=== PATIENT | female | born 1955 | race Caucasian/White ===

== ENCOUNTER 2019-11-23 06:45 | Inpatient (IN) | payer MEDICARE, MEDICAID ==
[~2019-11-23] VITALS: Ht 162.6 cm; Wt 103.0 kg
[~2019-11-23 06:45] MED LIST: METO25TA35 PO; MULT-717 PO; TRIA1TAB3 PO
[2019-11-23 07:20] VITALS: BP 138/82
[2019-11-23] MEDS ORDERED: CHLORHEXIDINE 15 ML UDC MM STA (07:27)
[2019-11-23] MEDS ORDERED: LACTATED RINGERS 1,000 ML IV SCH ×2 (07:29→12:30)
[2019-11-23] MEDS ORDERED: GABAPENTIN 300 MG CAPSULE ONE (08:13)
[2019-11-23] MEDS ORDERED: ACETAMINOPHEN 500 MG TABLET ONE (08:13)
[2019-11-23] MEDS ORDERED: GABAPENTIN 300 MG CAPSULE PO STA (08:16)
[2019-11-23] MEDS ORDERED: FENTANYL PF 250 MCG/5ML ONE (08:24)
[2019-11-23 08:25] LABS: ALANINE AMINOTRANSFERASE 33 U/L (12-78); ALBUMIN 3.6 g/dL (3.4-5.0); ANION GAP 5 mmol/L (5-15); CALCIUM 9.2 mg/dL (8.5-10.1); CHLORIDE 110 mmol/L (98-107); CREATININE 1.22 mg/dL (0.55-1.02)
[2019-11-23 08:27] LABS: ALKALINE PHOSPHATASE 81 U/L (45-117); BILIRUBIN,TOTAL 0.5 mg/dL (0.2-1.0)
[2019-11-23] MEDS ORDERED: LABETALOL 5MG/ML, 20ML IV PRN (08:30)
[2019-11-23] MEDS ORDERED: OXYcodone 5 MG/5 ML ORAL.SOL UDC PO PRN (08:30)
[2019-11-23] MEDS ORDERED: hydrALAzine 20 MG/ML, 1ML IV PRN (08:30)
[2019-11-23] MEDS ORDERED: PROMETHAZINE 25 MG/ML, 1ML IV PRN (08:30)
[2019-11-23] MEDS ORDERED: HALOPERIDOL 5 MG/ML IV PRN (08:30)
[2019-11-23] MEDS ORDERED: HYDROmorphone 2 MG/ML, 1ML IVPush PRN (08:30)
[2019-11-23] MEDS ORDERED: MEPERIDINE/PF 25MG/ML,1ML IVPush PRN (08:30)
[2019-11-23] MEDS ORDERED: ALBUTEROL SULFATE 2.5 MG/3 ML NPPB PRN (08:30)
[2019-11-23] MEDS ORDERED: ACETAMINOPHEN 500 MG TABLET PO ONE (08:30)
[2019-11-23] MEDS ORDERED: GABAPENTIN 300 MG CAPSULE PO ONE (08:30)
[2019-11-23] MEDS ORDERED: GLYCOPYRROLATE 0.2MG/1ML, 5ML ONE (09:27)
[2019-11-23] MEDS ORDERED: NEOSTIGMINE 1 MG/ML, 10ML ONE (09:27)
[2019-11-23] MEDS ORDERED: ROCURONIUM 10MG/ML,5ML ONE (09:27)
[2019-11-23] MEDS ORDERED: PROPOFOL 10 MG/ML, 20ML ONE (09:27)
[2019-11-23] MEDS ORDERED: ONDANSETRON 2MG/ML, 2ML ONE (09:27)
[2019-11-23] MEDS ORDERED: DEXAMETHASONE 4 MG/ML, 1ML ONE (09:27)
[2019-11-23] MEDS ORDERED: SUCCINYLCHOLINE 20 MG/ML, 10ML ONE (09:27)
[2019-11-23] MEDS ORDERED: CEFAZOLIN 1,000 MG ONE (09:27)
[2019-11-23] MEDS ORDERED: FENTANYL PF 100 MCG/2ML ONE ×3 (09:50→10:41)
[2019-11-23] MEDS: FENTANYL PF 100 MCG/2ML IV PRN ×6 (09:52→10:45)
[2019-11-23] MEDS ORDERED: OXYcodone 5 MG/5 ML ORAL.SOL UDC ONE (09:56)
[2019-11-23] MEDS ORDERED: hydrALAzine 20 MG/ML, 1ML ONE (10:00)
[2019-11-23] MEDS ORDERED: LABETALOL 5MG/ML, 20ML ONE (10:00)
[2019-11-23] MEDS ORDERED: ONDANSETRON 2MG/ML, 2ML IV PRN (12:30)
[2019-11-23] MEDS ORDERED: morphine SULFATE 10 MG/ML, 1ML IV PRN (12:30)
[2019-11-23 12:35] VITALS: BP 122/82
[2019-11-23] MEDS ORDERED: METOPROLOL TARTRATE 25 MG TAB ONE (14:00)
[2019-11-23] MEDS: HYDROcodone/APAP 5/325 TABLET PO PRN (14:02)
[2019-11-23] MEDS: METOPROLOL TARTRATE 25 MG TAB PO SCH (14:03)
[2019-11-23 18:53] LABS: ALBUMIN 3.5 g/dL (3.4-5.0); CALCIUM 8.8 mg/dL (8.5-10.1)
[2019-11-23 19:20] VITALS: BP 106/70
[2019-11-23] MEDS ORDERED: PROMETHAZINE 25 MG/ML, 1ML IM PRN (20:00)
[2019-11-23] MEDS ORDERED: PROCHLORPERAZINE 10MG TABLET PO PRN (20:00)
[2019-11-23 23:44] VITALS: BP 102/67
[2019-11-24 00:43] LABS: ALBUMIN 3.3 g/dL (3.4-5.0); CALCIUM 8.6 mg/dL (8.5-10.1)
[2019-11-24 04:25] VITALS: BP 103/65
[2019-11-24 06:28] LABS: ALBUMIN 3.3 g/dL (3.4-5.0); CALCIUM 8.7 mg/dL (8.5-10.1)
[2019-11-24 06:35] VITALS: BP 117/76
[2019-11-24] MEDS: METOPROLOL TARTRATE 25 MG TAB PO SCH (06:43)
[2019-11-24 06:51] VITALS: BP 104/69
[2019-11-24] MEDS ORDERED: HYDR-3240 PO (08:27)
[2019-11-24] MEDS ORDERED: LEVO25TA2 PO (08:28)
[2019-11-24] MEDS ORDERED: PROM12.57 PO (08:30)
[2019-11-24] MEDS: HYDROcodone/APAP 5/325 TABLET PO PRN (08:58)
[2019-11-24] MEDS ORDERED: MULTIVITAMINS/MINERALS TABLET PO SCH (09:00)
[2019-11-24] MEDS ORDERED: TRIAMTERENE-HCTZ 37.5/25 MG TABLET PO SCH (09:00)
== END 2019-11-24 10:45 | disposition home or self-care (01) | DRG 625 ==
LOC: OUT 06:45 → 4NE 11:42
PROVIDERS: ADMIT Surgery; ATTEND Surgery
PROC: 0GTK0ZZ Resection of Thyroid Gland, Open Approach (ICD-10-PCS; principal; 2019-11-23 08:30)
DX: E04.9 Nontoxic goiter, unspecified (principal); N17.0 Acute kidney failure with tubular necrosis; K21.9 Gastro-esophageal reflux disease without esophagitis; E78.5 Hyperlipidemia, unspecified; I12.9 Hypertensive chronic kidney disease with stage 1 through stage 4 chronic kidney disease, or unspecified chronic kidney disease; G89.29 Other chronic pain; M54.9 Dorsalgia, unspecified; Z86.73 Personal history of transient ischemic attack (TIA), and cerebral infarction without residual deficits; M19.90 Unspecified osteoarthritis, unspecified site; J45.909 Unspecified asthma, uncomplicated; Z90.49 Acquired absence of other specified parts of digestive tract; Z90.710 Acquired absence of both cervix and uterus; M81.0 Age-related osteoporosis without current pathological fracture; N18.3 Chronic kidney disease, stage 3 (moderate); E66.9 Obesity, unspecified; Z68.39 Body mass index [BMI] 39.0-39.9, adult; Z88.2 Allergy status to sulfonamides; Z88.1 Allergy status to other antibiotic agents; Z88.6 Allergy status to analgesic agent; Z91.018 Allergy to other foods
CPT/HCPCS: 36415; 80053; 82040; 82310; 84432; 86800; 88307; 93005; G0378; J0690; J1100; J2405; J2550; J2704; J2710; J3010; Q0164; C1760; J0330; J2270; J7120

== ENCOUNTER 2021-04-06 07:52 | Outpatient (CLI) | payer MEDICARE ==
[~2021-04-06 07:52] MED LIST changes: +HYDR-2214 PO; +LEVO25TA2 PO; +PROM12.57 PO; +REGADENOSON 0.4 MG/5 ML SYRINGE ONE
== END 2021-04-06 23:59 | disposition home or self-care (01) ==
LOC: CFH 07:52
PROVIDERS: ATTEND Internal Medicine Cardiovascular Disease
DX: I10 Essential (primary) hypertension (principal); R07.89 Other chest pain; R00.2 Palpitations
CPT/HCPCS: 78452; 93017; A9502; J2785

== ENCOUNTER 2021-04-18 14:12 | Day surgery (SDC) | payer MEDICARE, MEDICAID ==
[~2021-04-18] VITALS: Ht 160 cm; Wt 98.9 kg
[~2021-04-18 14:12] MED LIST changes: +BUPIVACAINE/PF 0.5% ONE; -REGADENOSON 0.4 MG/5 ML SYRINGE ONE
[2021-04-18] MEDS ORDERED: FENTANYL PF 250 MCG/5ML ONE (14:46)
[2021-04-18] MEDS ORDERED: CHLORHEXIDINE 15 ML UDC ONE (14:53)
[2021-04-18] MEDS ORDERED: CHLORHEXIDINE 15 ML UDC PO ONE (15:00)
[2021-04-18] MEDS ORDERED: LACTATED RINGERS 1,000 ML IV SCH (15:00)
[2021-04-18] MEDS ORDERED: CYCL10TA2 PO (15:09)
[2021-04-18] MEDS ORDERED: ATOR20TA86 PO (15:09)
[2021-04-18] MEDS ORDERED: ALEN70TA77 PO (15:09)
[2021-04-18] MEDS ORDERED: LEVO100T PO (15:09)
[2021-04-18] MEDS ORDERED: ESOM40CA48 PO (15:09)
[2021-04-18] MEDS ORDERED: ALBU90AE2 INH (15:09)
[2021-04-18] MEDS ORDERED: FLUT1AER INH (15:09)
[2021-04-18] MEDS ORDERED: HYDR25TA6 PO (15:09)
[2021-04-18] MEDS ORDERED: CARV12.52 PO (15:09)
[2021-04-18 15:13] VITALS: BP 126/84
[2021-04-18] MEDS ORDERED: ASCO-96 PO (15:13)
[2021-04-18] MEDS ORDERED: CYAN25003 PO (15:13)
[2021-04-18] MEDS ORDERED: CHOL10003 PO (15:13)
[2021-04-18] MEDS ORDERED: PROPOFOL 50 ML ONE ×2 (15:42→16:15)
[2021-04-18] MEDS ORDERED: BUPIVACAINE/PF-EPI 0.5% 1:200K INFIL ONE (16:03)
[2021-04-18] MEDS ORDERED: LABETALOL 5MG/ML, 20ML ONE (16:15)
[2021-04-18] MEDS ORDERED: HYDROmorphone 1 MG/ML, 1ML INJ IVPush PRN (16:30)
[2021-04-18] MEDS ORDERED: KETOROLAC 30 MG/1 ML IV PRN (16:30)
[2021-04-18] MEDS ORDERED: PROMETHAZINE 25 MG/ML, 1ML IVPush PRN (16:30)
[2021-04-18] MEDS ORDERED: ALBUTEROL SULFATE 2.5 MG/3 ML NPPB PRN (16:30)
[2021-04-18] MEDS ORDERED: DIPHENHYDRAMINE 50 MG/ML, 1ML IVPush PRN (16:30)
[2021-04-18] MEDS ORDERED: MEPERIDINE/PF 25MG/0.5ML IVPush PRN (16:30)
[2021-04-18] MEDS ORDERED: LABETALOL 5MG/ML, 20ML IV PRN (16:30)
[2021-04-18] MEDS ORDERED: OXYcodone 5 MG/5 ML ORAL.SOL UDC PO PRN (16:30)
[2021-04-18] MEDS ORDERED: FENTANYL PF 100 MCG/2ML ONE ×2 (16:46→16:58)
[2021-04-18] MEDS ORDERED: OXYcodone 5 MG/5 ML ORAL.SOL UDC ONE (16:47)
[2021-04-18] MEDS: FENTANYL PF 100 MCG/2ML IV PRN ×4 (16:49→17:12)
== END 2021-04-18 19:58 | disposition home or self-care (01) ==
LOC: OR 14:12
PROVIDERS: ATTEND Surgery
DX: K81.1 Chronic cholecystitis (principal); I12.9 Hypertensive chronic kidney disease with stage 1 through stage 4 chronic kidney disease, or unspecified chronic kidney disease; N18.30 Chronic kidney disease, stage 3 unspecified; J45.909 Unspecified asthma, uncomplicated; K21.9 Gastro-esophageal reflux disease without esophagitis; E89.0 Postprocedural hypothyroidism; Z20.822 Contact with and (suspected) exposure to COVID-19; Z79.890 Hormone replacement therapy; Z79.899 Other long term (current) drug therapy; Z88.2 Allergy status to sulfonamides; Z88.5 Allergy status to narcotic agent; Z88.8 Allergy status to other drugs, medicaments and biological substances
CPT/HCPCS: 47562; 87635; 88304; 93005; J1885; J2704; J3010; J7120

== ENCOUNTER 2021-04-21 12:43 | Outpatient (CLI) | payer MEDICARE, MEDICAID ==
[~2021-04-21 12:43] MED LIST changes: +ALBU90AE2 INH; +ALEN70TA77 PO; +ASCO-96 PO; +ATOR20TA86 PO; -BUPIVACAINE/PF 0.5% ONE; +CARV12.52 PO; +CHOL10003 PO; +CYAN25003 PO; +CYCL10TA2 PO; +ESOM40CA48 PO; +FLUT1AER INH; +HYDR25TA6 PO; +LEVO100T PO
== END 2021-04-21 23:59 | disposition home or self-care (01) ==
LOC: CVU 12:43
PROVIDERS: ATTEND Internal Medicine Cardiovascular Disease
DX: I08.3 Combined rheumatic disorders of mitral, aortic and tricuspid valves (principal); I10 Essential (primary) hypertension; R07.89 Other chest pain; R00.2 Palpitations
CPT/HCPCS: 93306